=== PATIENT | female | born 1980 | race Caucasian/White ===

== ENCOUNTER 2018-04-28 22:54 | Emergency (ER) | payer OTHER ==
[~2018-04-28] VITALS: Ht 157.5 cm; Wt 126.3 kg
[2018-04-29 00:26] LABS: BASOPHILS # (AUTO) 0.09 x10^3/uL (0-0.1); BASOPHILS % (AUTO) 1 % (0-1); EOSINOPHILS # (AUTO) 0.17 x10^3/uL (0-0.4); EOSINOPHILS % (AUTO) 1 % (1-7); LYMPHOCYTES # (AUTO) 2.28 x10^3/uL (1-3.4); LYMPHOCYTES % (AUTO) 18 % (22-44); MD NO; MEAN CORPUSCULAR HEMOGLOBIN 27.5 pg (27.0-34.8); MEAN CORPUSCULAR HGB CONC 33.1 g/dL (32.4-35.8); MEAN CORPUSCULAR VOLUME 83.2 fL (80-100); MEAN PLATELET VOLUME 7.9 fL (7.4-10.4); MONOCYTES # (AUTO) 1.15 x10^3/uL (0.2-0.8); MONOCYTES % (AUTO) 9 % (2-9); NEUTROPHILS # (AUTO) 9.03 x10^3/uL (1.8-6.8); NEUTROPHILS % (AUTO) 71 % (42-75); PLATELET COUNT 333 x10^3/uL (130-400); RED BLOOD COUNT 4.72 x10^6/uL (3.82-5.3); RED CELL DISTRIBUTION WIDTH 14.9 % (9.6-15.2)
[2018-04-29] MEDS ORDERED: ASPIRIN 81 MG TABLET CHEW PO ONE (00:30)
[2018-04-29] MEDS ORDERED: ASPIRIN 81 MG TABLET CHEW ONE (00:39)
[2018-04-29 00:52] LABS: ALANINE AMINOTRANSFERASE 34 U/L (12-78); ALBUMIN 3.3 g/dL (3.4-5.0); ANION GAP 8 mmol/L (5-15); CALCIUM 8.5 mg/dL (8.5-10.1); CHLORIDE 107 mmol/L (98-107); CREATININE 1.03 mg/dL (0.55-1.02)
[2018-04-29 00:56] LABS: ALKALINE PHOSPHATASE 94 U/L (45-117); BILIRUBIN,TOTAL 0.3 mg/dL (0.2-1.0); TOTAL PROTEIN 7.7 g/dL (6.4-8.2); TROPONIN I < 0.015 ng/mL (0.000-0.045)
[2018-04-29] MEDS ORDERED: LABETALOL 5MG/ML, 20ML ONE (01:50)
[2018-04-29] MEDS ORDERED: LABETALOL 5MG/ML, 20ML IVPush ONE (02:00)
[2018-04-29] MEDS ORDERED: OMNIPAQUE 350 MG/ML, 100ML BOTTLE ONE (02:19)
[2018-04-29] MEDS ORDERED: AMLODIPINE 5 MG TABLET PO ONE (04:00)
[2018-04-29] MEDS ORDERED: BENAZEPRIL 20 MG TABLET PO ONE (04:00)
[2018-04-29 04:15] VITALS: BP 171/92
[2018-04-29] MEDS ORDERED: AMLODIPINE 5 MG TABLET ONE (04:15)
== END 2018-04-29 04:21 | disposition home or self-care (01) ==
LOC: ED 04-29 00:03
DX: R07.89 Other chest pain (principal); I10 Essential (primary) hypertension
CPT/HCPCS: 36415; 71045; 71275; 80053; 84484; 85025; 93005; 96374; 99285; Q9967

== ENCOUNTER → 2020-01-16 | Outpatient (CLI) | payer OTHER ==
[~2020-01-16] MED LIST: ACET-76 PO; SPIR25TA5 PO; [UNRECOGNIZED DRUG - OTHER] PO
[2020-01-16 11:45] LABS: CHLORIDE 108 mmol/L (98-107)
[2020-01-16 11:53] LABS: ALANINE AMINOTRANSFERASE 26 U/L (12-78); ALBUMIN 3.5 g/dL (3.4-5.0); ALKALINE PHOSPHATASE 77 U/L (45-117); ANION GAP 8 mmol/L (5-15); BILIRUBIN,TOTAL 0.2 mg/dL (0.2-1.0); CREATININE 0.87 mg/dL (0.55-1.02)
== END | disposition home or self-care (01) ==
LOC: STAR 10:16
PROVIDERS: ATTEND Obstetrics & Gynecology Female Pelvic Medicine and Reconstructive Surgery
DX: N39.3 Stress incontinence (female) (male) (principal); N92.6 Irregular menstruation, unspecified; N94.6 Dysmenorrhea, unspecified; R10.2 Pelvic and perineal pain
CPT/HCPCS: 36415; 80053

== ENCOUNTER 2020-01-21 05:41 | Day surgery (SDC) | payer OTHER ==
[~2020-01-21] VITALS: Ht 157.5 cm; Wt 122.0 kg
[2020-01-21] MEDS ORDERED: LACTATED RINGERS 1,000 ML IV SCH (06:40)
[2020-01-21 06:47] VITALS: BP 151/85
[2020-01-21 06:48] LABS: HCG UR SG 1.023 (1.003-1.030)
[2020-01-21] MEDS ORDERED: LIDOCAINE-MPF 1%, 2ML INFIL ONE (07:00)
[2020-01-21] MEDS ORDERED: CHLORHEXIDINE 15 ML UDC MM ONE (07:00)
[2020-01-21] MEDS ORDERED: ACETAMINOPHEN 500 MG TABLET ONE (07:06)
[2020-01-21] MEDS ORDERED: GABAPENTIN 300 MG CAPSULE ONE (07:06)
[2020-01-21] MEDS ORDERED: VANCOMYCIN 500 MG ONE (07:13)
[2020-01-21] MEDS ORDERED: BUPIVACAINE/PF-EPI 0.25% 1:200K ONE (07:13)
[2020-01-21] MEDS ORDERED: GENTAMICIN 80 MG/2 ML ONE (07:13)
[2020-01-21] MEDS ORDERED: FENTANYL PF 250 MCG/5ML ONE (07:22)
[2020-01-21] MEDS ORDERED: MIDAZOLAM 1 MG/ML, 2ML ONE (07:22)
[2020-01-21] MEDS ORDERED: hydrALAzine 20 MG/ML, 1ML IV PRN (07:30)
[2020-01-21] MEDS ORDERED: MEPERIDINE/PF 25MG/0.5ML IVPush PRN (07:30)
[2020-01-21] MEDS ORDERED: GABAPENTIN 300 MG CAPSULE PO ONE (07:30)
[2020-01-21] MEDS ORDERED: HALOPERIDOL 5 MG/ML IV PRN (07:30)
[2020-01-21] MEDS ORDERED: OXYcodone 5 MG/5 ML ORAL.SOL UDC PO PRN (07:30)
[2020-01-21] MEDS ORDERED: LABETALOL 5MG/ML, 20ML IV PRN (07:30)
[2020-01-21] MEDS ORDERED: PROMETHAZINE 25 MG/ML, 1ML IVPush PRN (07:30)
[2020-01-21] MEDS ORDERED: DIPHENHYDRAMINE 50 MG/ML, 1ML IVPush PRN (07:30)
[2020-01-21] MEDS ORDERED: ACETAMINOPHEN 500 MG TABLET PO ONE (07:30)
[2020-01-21] MEDS ORDERED: CEFAZOLIN 1,000 MG ONE ×2 (07:37→09:14)
[2020-01-21] MEDS ORDERED: DEXAMETHASONE 4 MG/ML, 1ML ONE (09:14)
[2020-01-21] MEDS ORDERED: NEOSTIGMINE 1 MG/ML, 10ML ONE (09:14)
[2020-01-21] MEDS ORDERED: ONDANSETRON 2MG/ML, 2ML ONE (09:14)
[2020-01-21] MEDS ORDERED: SUCCINYLCHOLINE 20 MG/ML, 10ML ONE (09:14)
[2020-01-21] MEDS ORDERED: GLYCOPYRROLATE 0.2MG/1ML, 5ML ONE (09:14)
[2020-01-21] MEDS ORDERED: PROPOFOL 10 MG/ML, 20ML ONE (09:14)
[2020-01-21] MEDS ORDERED: ROCURONIUM 10MG/ML,5ML ONE (09:14)
[2020-01-21] MEDS ORDERED: FENTANYL PF 100 MCG/2ML ONE ×2 (09:30→09:53)
[2020-01-21] MEDS: FENTANYL PF 100 MCG/2ML IV PRN ×2 (09:50→10:05)
[2020-01-21] MEDS ORDERED: OXYcodone 5 MG/5 ML ORAL.SOL UDC ONE (09:54)
[2020-01-21] MEDS ORDERED: HYDROmorphone 1 MG/ML, 1ML INJ ONE (09:54)
[2020-01-21] MEDS ORDERED: KETOROLAC 30 MG/1 ML ONE (09:58)
[2020-01-21] MEDS: HYDROmorphone 1 MG/ML, 1ML INJ IVPush PRN ×2 (10:10→10:21)
[2020-01-21] MEDS ORDERED: KETOROLAC 30 MG/1 ML IVPush ONE (10:30)
== END 2020-01-21 13:40 | disposition home or self-care (01) ==
LOC: OUT 05:41
PROVIDERS: ATTEND Obstetrics & Gynecology Female Pelvic Medicine and Reconstructive Surgery
DX: N92.1 Excessive and frequent menstruation with irregular cycle (principal); Z11.59 Encounter for screening for other viral diseases; N94.6 Dysmenorrhea, unspecified; N81.89 Other female genital prolapse; N39.3 Stress incontinence (female) (male); N81.11 Cystocele, midline; N81.6 Rectocele; N81.5 Vaginal enterocele; N84.1 Polyp of cervix uteri; N87.9 Dysplasia of cervix uteri, unspecified; R10.2 Pelvic and perineal pain; I10 Essential (primary) hypertension; K21.9 Gastro-esophageal reflux disease without esophagitis; Z79.899 Other long term (current) drug therapy; Z88.8 Allergy status to other drugs, medicaments and biological substances; Z98.890 Other specified postprocedural states
CPT/HCPCS: 36415; 57265; 57282; 57288; 58554; 81025; 87635; 88307; C1771; J0330; J0690; J1100; J1170; J1580; J1885; J2250; J2405; J2704; J2710; J3010; J3370; J7120

== ENCOUNTER 2020-02-02 11:33 | Emergency (ER) | payer OTHER ==
[~2020-02-02] VITALS: Ht 157.5 cm; Wt 126.1 kg
[2020-02-02] MEDS ORDERED: SODIUM CHLORIDE FLUSH 10ML SYR IVF ONE (12:00)
[2020-02-02] MEDS ORDERED: ONDANSETRON 2MG/ML, 2ML IVPush ONE (12:00)
[2020-02-02] MEDS ORDERED: ONDANSETRON 2MG/ML, 2ML ONE (12:17)
[2020-02-02] MEDS ORDERED: MORPHINE SULFATE 4 MG/ML, 1ML ONE ×2 (12:17→13:32)
[2020-02-02] MEDS: MORPHINE SULFATE 4 MG/ML, 1ML IVPush PRN ×2 (12:28→13:33)
--- NOTE | 2020-02-02 12:33 | NUR ---
BREAK RN- PT BACK FROM IMAGING, RESTING IN BED. CALL LIGHT IN REACH
[2020-02-02 12:40] LABS: MEAN CORPUSCULAR HEMOGLOBIN 21.2 pg (27.0-34.8); MEAN CORPUSCULAR VOLUME 70.7 fL (80-100); MEAN PLATELET VOLUME 7.2 fL (7.4-10.4); PLATELET COUNT 493 x10^3/uL (130-400); RED BLOOD COUNT 4.58 x10^6/uL (3.82-5.3); RED CELL DISTRIBUTION WIDTH 19.3 % (9.6-15.2)
[2020-02-02 12:43] LABS: ALBUMIN 3.5 g/dL (3.4-5.0); ANION GAP 6 mmol/L (5-15); CALCIUM 9.3 mg/dL (8.5-10.1); CHLORIDE 110 mmol/L (98-107)
[2020-02-02 12:47] LABS: ALANINE AMINOTRANSFERASE 30 U/L (12-78); ALKALINE PHOSPHATASE 83 U/L (45-117); BILIRUBIN,TOTAL 0.3 mg/dL (0.2-1.0); CREATININE 1.17 mg/dL (0.55-1.02); TOTAL PROTEIN 7.6 g/dL (6.4-8.2)
[2020-02-02 12:54] LABS: <PLATELET ESTIMATE> INCREASED; <PLT MORPHOLOGY> NORMAL PLT MORPH; ANISOCYTOSIS 1+; BASOPHILS % (AUTO) 1 % (0-1); EOSINOPHILS # (AUTO) 0.31 x10^3/uL (0-0.4); EOSINOPHILS % (AUTO) 2 % (1-7); HYPOCHROMIA 1+; LYMPHOCYTES # (AUTO) 2.05 x10^3/uL (1-3.4); LYMPHOCYTES % (AUTO) 11 % (22-44); MD MORPH REVIEW ONLY; MICROCYTOSIS 1+; MONOCYTES # (AUTO) 1.39 x10^3/uL (0.2-0.8); MONOCYTES % (AUTO) 7 % (2-9); NEUTROPHILS # (AUTO) 15.36 x10^3/uL (1.8-6.8); NEUTROPHILS % (AUTO) 80 % (42-75); POLYCHROMASIA 1+
[2020-02-02 13:11] LABS: MICROSCOPIC INDICATED
[2020-02-02] MEDS ORDERED: MORPHINE SULFATE 4 MG/ML, 1ML IVPush PRN (13:30)
[2020-02-02] MEDS ORDERED: CEFTRIAXONE PMX 1GM/50ML 50 ML IV ONE (14:00)
[2020-02-02] MEDS ORDERED: CEFTRIAXONE PMX 1GM/50ML 50 ML ONE (14:18)
[2020-02-02 14:28] LABS: MICROSCOPIC INDICATED
[2020-02-02 16:01] VITALS: BP 140/83
== END 2020-02-02 16:03 | disposition home or self-care (01) ==
LOC: ED 13:08
DX: N13.2 Hydronephrosis with renal and ureteral calculous obstruction (principal); I10 Essential (primary) hypertension; Z90.710 Acquired absence of both cervix and uterus; Z87.891 Personal history of nicotine dependence
CPT/HCPCS: 36415; 74176; 80053; 81001; 83690; 85025; 87086; 96365; 96366; 96375; 96376; 99284; J0696; J2270; J2405; 87077; 87186

== ENCOUNTER 2020-02-05 13:15 | Emergency (ER) | payer OTHER ==
[~2020-02-05] VITALS: Ht 157.5 cm; Wt 124.4 kg
[2020-02-05 13:38] LABS: MICROSCOPIC INDICATED
--- NOTE | 2020-02-05 13:38 | NUR ---
CERTIFIED ORTHOTIST: PT TO ROOM FROM LOBBY
--- NOTE | 2020-02-05 13:50 | NUR ---
Pt resting comfortably in bed locked in lowest position side rails up x 2, pt expresses no needs at this time. Will continue to monitor. ED provider bedside.
[2020-02-05] MEDS ORDERED: SODIUM CHLORIDE FLUSH 10ML SYR IVF ONE (15:00)
[2020-02-05 15:04] LABS: BASOPHILS # (AUTO) 0.04 x10^3/uL (0-0.1); BASOPHILS % (AUTO) 0 % (0-1); EOSINOPHILS # (AUTO) 0.27 x10^3/uL (0-0.4); EOSINOPHILS % (AUTO) 2 % (1-7); LYMPHOCYTES # (AUTO) 2.11 x10^3/uL (1-3.4); LYMPHOCYTES % (AUTO) 13 % (22-44); MD NO; MEAN CORPUSCULAR HEMOGLOBIN 21.6 pg (27.0-34.8); MEAN CORPUSCULAR HGB CONC 31.3 g/dL (32.4-35.8); MEAN CORPUSCULAR VOLUME 68.8 fL (80-100); MEAN PLATELET VOLUME 7.4 fL (7.4-10.4); MONOCYTES % (AUTO) 8 % (2-9); NEUTROPHILS # (AUTO) 12.99 x10^3/uL (1.8-6.8); NEUTROPHILS % (AUTO) 77 % (42-75); PLATELET COUNT 439 x10^3/uL (130-400); RED CELL DISTRIBUTION WIDTH 18.5 % (9.6-15.2)
[2020-02-05 15:15] LABS: ALANINE AMINOTRANSFERASE 24 U/L (12-78); ALBUMIN 3.5 g/dL (3.4-5.0); ANION GAP 6 mmol/L (5-15); CALCIUM 8.7 mg/dL (8.5-10.1); CHLORIDE 107 mmol/L (98-107); CREATININE 1.39 mg/dL (0.55-1.02)
[2020-02-05 15:18] LABS: ALKALINE PHOSPHATASE 77 U/L (45-117); BILIRUBIN,TOTAL 0.5 mg/dL (0.2-1.0); TOTAL PROTEIN 8.1 g/dL (6.4-8.2)
--- NOTE | 2020-02-05 15:20 | NUR ---
Pt resting comfortably in bed locked in lowest position side rails up x 2, pt expresses no needs at this time. will continue to monitor.
--- NOTE | 2020-02-05 15:22 | NUR ---
Both blood cultures collect by industrial laborer prior to antibiotics being administered.
--- NOTE | 2020-02-05 15:52 | NUR ---
Pt ambulated to restroom without assistance with steady gait.
[2020-02-05 16:07] LABS: MICROSCOPIC AUTO
[2020-02-05 16:29] VITALS: BP 142/91
--- NOTE | 2020-02-05 16:47 | NUR ---
Pt resting comfortably, family bedside. No needs expressed, will continue to monitor.
--- NOTE | 2020-02-05 17:34 | NUR ---
Patient given discharge instructions and Rx, they have confirmed that they understand the instructions. Patient ambulatory with steady gait.
== END 2020-02-05 18:03 | disposition home or self-care (01) ==
LOC: ED 17:23
DX: N13.2 Hydronephrosis with renal and ureteral calculous obstruction (principal); Z88.0 Allergy status to penicillin
CPT/HCPCS: 36415; 80053; 81001; 85025; 87040; 87077; 87086; 87186; 99283